=== PATIENT | female | born 1985 | race Two or more races ===

== ENCOUNTER 2017-04-04 21:29 | Emergency (ER) | payer OTHER ==
[~2017-04-04] VITALS: Ht 170.2 cm; Wt 65.8 kg
--- NOTE | 2017-04-04 21:40 | NUR ---
TO BED 7 A 31 YO FEMALE [id number] FROM [facility], C/O HEADACHE S/P WITNESSED 10 MINS SEIZURE, AOX4. NO TRAUMA NOTED. PER PATIENT, SHE IS TAKING KEPPRA FOR SEIZURE REGULARLY. VSS. NO S/S OF ACUTE DISTRESS. NONDIAPHORETIC. SAFETY AND SEIZURE PREACAUTIONS INITIATED AND OBSERVED. VS MONITORING ON. AWAITING FOR ER MD SAUNDERS.
[2017-04-04] MEDS ORDERED: CLINDAMYCIN HCL 150 MG CAPSULE PO ONE ×2 (22:20→22:30)
[2017-04-04] MEDS ORDERED: ACETAMINOPHEN ES 500 MG TABLET ONE (22:42)
--- NOTE | 2017-04-04 22:47 | NUR ---
TYLENOL 1G GIVEN PER DR RITCHIE'S ORDERS FOR HEADACHE.
[2017-04-04] MEDS ORDERED: ACETAMINOPHEN 325 MG TABLET PO ONE (23:00)
--- NOTE | 2017-04-04 23:08 | NUR ---
Patient discharged to police custody in stable condition. Written and verbal after care instructions given. Patient verbalizes understanding of instruction. Patient is ambulatory with a steady gait, no further complaints.
[2017-04-04 23:09] VITALS: BP 116/68
== END 2017-04-04 23:09 ==
LOC: ER 21:35
DX: G40.909 Epilepsy, unspecified, not intractable, without status epilepticus (principal); L03.211 Cellulitis of face
CPT/HCPCS: 82962; 99283; A4606; Z7610